=== PATIENT | female | born 1990 | race Caucasian/White ===

== ENCOUNTER 2019-12-30 20:50 | Observation (INO) | payer BC ==
[~2019-12-30] VITALS: Ht 154.9 cm; Wt 83.5 kg
== END 2019-12-30 23:05 | disposition home or self-care (01) ==
LOC: SPU 20:50
PROVIDERS: ADMIT Obstetrics & Gynecology; ATTEND Obstetrics & Gynecology
DX: O36.8130 Decreased fetal movements, third trimester, not applicable or unspecified (principal); Z3A.29 29 weeks gestation of pregnancy
CPT/HCPCS: 76819; 81002; G0378

== ENCOUNTER 2020-01-01 15:25 | Emergency (ER) | payer BC ==
[~2020-01-01] VITALS: Ht 154.9 cm; Wt 83.5 kg
[2020-01-01 15:26] LABS: BILIRUBIN,URINE NEGATIVE (NEGATIVE); CLARITY/URINE CLEAR (CLEAR); COLOR,URINE YELLOW (YELLOW); GLUCOSE,URINE 3+ (NEGATIVE); KETONES,URINE 1+ (NEGATIVE); LEUKOCYTE ESTERASE ,URINE 2+ (NEGATIVE); NITRITE, URINE NEGATIVE (NEGATIVE); PROTEIN URINE NEGATIVE (NEGATIVE); UROBILINOGEN,URINE 0.2 (0.2-1.0)
[2020-01-01 15:39] LABS: BLOOD, URINE TRACE (NEGATIVE)
[2020-01-01 15:41] VITALS: BP_SYST 133
[2020-01-01 15:43] LABS: BACTERIA,URINE MODERATE /HPF (None Seen); MUCUS,URINE None Seen /LPF (None Seen); RBC,URINE 0-3 /HPF (0-3)
--- NOTE | 2020-01-01 15:44 | NUR ---
Patient to ER bed 02 to gown for evaluation. Side rails up.
--- NOTE | 2020-01-01 15:45 | NUR ---
Pt brought by self, A&Ox4, pt presents to ER with weakness and dizziness, pt states she is 29 weeks and she is taking Macrobid x 1 week for recent UTI, pt afebrile, skin pink and warm,cap refill <3.
--- NOTE | 2020-01-01 15:50 | NUR ---
Dr Parker evaluating patient at bedside
[2020-01-01 16:25] VITALS: BP_SYST 133
--- NOTE | 2020-01-01 16:27 | NUR ---
Patient given written and verbal discharge instructions and verbalizes understanding. ER MD discussed with patient the results and treatment provided. Patient in stable condition. ID arm band removed. . Rx of keflex and meclizine given. Patient educated on pain management and to follow up with PMD. Pain Scale 0/10 . Opportunity for questions provided and answered. Medication side effect fact sheet provided.
== END 2020-01-01 16:27 | disposition home or self-care (01) ==
LOC: EDSTATUS 15:25 → SED 15:25
DX: O23.43 Unspecified infection of urinary tract in pregnancy, third trimester (principal); O26.893 Other specified pregnancy related conditions, third trimester; H81.10 Benign paroxysmal vertigo, unspecified ear; Z88.8 Allergy status to other drugs, medicaments and biological substances; Z3A.29 29 weeks gestation of pregnancy
CPT/HCPCS: 59025; 81000-TC; 87086; 99283

== ENCOUNTER 2020-02-29 12:55 | Inpatient (IN) | payer BC ==
[~2020-02-29] VITALS: Ht 154.9 cm; Wt 91.6 kg
[2020-02-29 13:58] LABS: BILIRUBIN,URINE NEGATIVE (NEGATIVE); CLARITY/URINE CLEAR (CLEAR); COLOR,URINE YELLOW (YELLOW); GLUCOSE,URINE NEGATIVE (NEGATIVE); KETONES,URINE 1+ (NEGATIVE); LEUKOCYTE ESTERASE ,URINE NEGATIVE (NEGATIVE); NITRITE, URINE NEGATIVE (NEGATIVE); PROTEIN URINE 2+ (NEGATIVE); UROBILINOGEN,URINE 0.2 (0.2-1.0)
[2020-02-29 14:01] LABS: BLOOD, URINE TRACE (NEGATIVE)
[2020-02-29 14:05] LABS: BASOPHILS % (AUTO) 0.4 % (0.0-2.0); EOSINOPHILS % (AUTO) 0.4 % (0.0-4.0); HEMATOCRIT 38.2 % (36-48); HEMOGLOBIN 12.4 g/dL (12.0-16.0); LYMPHOCYTES # (AUTO) 1.4 K/uL (1.0-5.5); LYMPHOCYTES % (AUTO) 16.6 % (20.5-51.5); MEAN CORPUSCULAR HEMOGLOBIN 28 pg (27-31); MEAN CORPUSCULAR HGB CONC 32 % (32-36); MEAN CORPUSCULAR VOLUME 85 fL (79.0-98.0); MONOCYTES # (AUTO) 0.5 K/uL (0.0-1.0); MONOCYTES % (AUTO) 6.2 % (1.7-9.3); NEUTROPHILS # (AUTO) 6.3 K/uL (1.8-7.7); NEUTROPHILS % (AUTO) 76.4 % (40.0-70.0); PLATELET COUNT (AUTO) 204 K/uL (130-430); RED BLOOD CELL COUNT(AUTO) 4.47 MIL/uL (4.2-6.2); RED CELL DISTRIBUTION WIDTH 16.5 % (9.0-15.0); WHITE BLOOD COUNT (AUTO) 8.2 K/uL (4.8-10.8)
[2020-02-29 14:09] LABS: BACTERIA,URINE MODERATE /HPF (None Seen); MUCUS,URINE 1+ /LPF (None Seen)
[2020-02-29 14:19] LABS: CALCIUM 8.4 mg/dL (8.4-11.0); CREATININE 0.67 mg/dL (0.55-1.30); POTASSIUM 3.6 mmol/L (3.5-5.1); TOTAL BILIRUBIN 0.2 mg/dL (0.0-1.0)
[2020-02-29 14:20] LABS: ALBUMIN 2.2 g/dL (3.4-4.8)
[2020-02-29] MEDS ORDERED: LR 1,000 ML IV SCH (18:30)
[2020-02-29] MEDS ORDERED: DINOPROSTONE 10 MG SUPP VG ONE (18:30)
[2020-02-29] MEDS ORDERED: TERBUTALINE SULFATE 1 MG/ML VIAL SUBCUT ONE (18:30)
[2020-02-29] MEDS ORDERED: OXYTOCIN/0.9 % SODIUM CHLORIDE 1,000 ML IV SCH (18:30)
[2020-02-29] MEDS ORDERED: hydrALAZINE HCL 20 MG/ML VIAL IVP PRN (19:36)
[2020-02-29] MEDS ORDERED: MAGNESIUM SULFATE IN WATER 100 ML IV ONE (19:45)
[2020-02-29] MEDS: LR 1,000 ML IV SCH (19:55)
[2020-02-29 20:07] VITALS: BP_SYST 139
[2020-02-29] MEDS ORDERED: FLU VACC QS2020-21 (6 mos & up) 0.5 ML/SYRINGE I.M. PRN (20:15)
[2020-02-29] MEDS: MAGNESIUM SULFATE IN WATER 500 ML IV PRN (20:28)
[2020-03-01] MEDS: CALCIUM CARBONATE 500 MG/ TAB.CHEW PO PRN ×2 (02:16→02:39)
[2020-03-01] MEDS ORDERED: MORPHINE SULFATE 10 MG/ML VIAL IVP PRN (05:00)
[2020-03-01] MEDS ORDERED: hydrALAZINE HCL 20 MG/ML VIAL IVP PRN (06:15)
[2020-03-01] MEDS ORDERED: AMPICILLIN SODIUM 2 GM VIAL ONE (06:23)
[2020-03-01] MEDS ORDERED: AMPICILLIN SODIUM 2 GM in NS 100 ML IV ONE (06:30)
[2020-03-01] MEDS: LR 1,000 ML IV SCH (06:35)
[2020-03-01] MEDS ORDERED: LR 1,000 ML IV SCH ×2 (08:00→12:30)
[2020-03-01] MEDS ORDERED: CEFAZOLIN 2 GM IVPB PREMIX 50 ML IV ONE (08:00)
[2020-03-01] MEDS ORDERED: ONDANSETRON HCL 4 MG/2 ML VIAL IVP PRN (08:15)
[2020-03-01] MEDS ORDERED: NALBUPHINE HCL 10 MG/ML AMP IVP PRN (08:15)
[2020-03-01] MEDS ORDERED: NALOXONE HCL 0.4 MG/ML AMP (NARCAN) IVP PRN ×2 (08:15)
[2020-03-01] MEDS ORDERED: fentaNYL CITRATE/PF 100 MCG/2 ML AMP IVP PRN ×2 (08:15)
[2020-03-01] MEDS ORDERED: MORPHINE SULFATE 10MG/10ML PF AMP SP SCH (08:15)
[2020-03-01] MEDS ORDERED: KETOROLAC TROMETHAMINE 60 MG/2 ML VIAL IM PRN (08:15)
[2020-03-01] MEDS ORDERED: DINOPROSTONE 10 MG SUPP VG ONE (08:33)
[2020-03-01 09:44] VITALS: BP_SYST 134
[2020-03-01] MEDS ORDERED: OXYTOCIN/0.9 % SODIUM CHLORIDE 1,000 ML IV ONE ×2 (09:54→12:30)
[2020-03-01] MEDS ORDERED: ONDANSETRON HCL 4 MG/2 ML VIAL ONE (09:55)
[2020-03-01] MEDS ORDERED: BUPIVACAINE /PF 0.75% 10 ML VIAL INJ ONE (09:55)
[2020-03-01] MEDS ORDERED: NS IRRIG SOLN 1000 ML IR ONE (09:55)
[2020-03-01] MEDS ORDERED: MORPHINE SULFATE 10MG/10ML PF AMP ONE (09:55)
[2020-03-01] MEDS ORDERED: ePHEDrine sulfate 50 MG/ML VIAL ONE (09:55)
[2020-03-01] MEDS ORDERED: LR 1,000 ML IV.SOLN IV ONE (09:55)
[2020-03-01] MEDS: MAGNESIUM SULFATE IN WATER 500 ML IV PRN (10:08)
[2020-03-01] MEDS ORDERED: DIPHENHYDRAMINE INJ 50 MG/ML VIAL ONE (10:20)
[2020-03-01] MEDS: DIPHENHYDRAMINE INJ 50 MG/ML VIAL IVP PRN ×2 (10:25→18:42)
[2020-03-01] MEDS ORDERED: AMPICILLIN SODIUM 1 GM in NS 50 ML IV SCH (10:30)
[2020-03-01] MEDS ORDERED: BISACODYL 10 MG/SUPPOSITORY RC PRN (12:30)
[2020-03-01] MEDS ORDERED: SENNOSIDES/DOCUSATE SODIUM 1 TAB TABLET(SENOKOT-S) PO PRN (12:30)
[2020-03-01] MEDS ORDERED: LANOLIN 7 GM OINT. TP PRN (12:30)
[2020-03-01] MEDS ORDERED: RHO(D) IMMUNE GLOBULIN/MALTOSE 1500 UNITS/1.3 ML (WINHRO) IM PRN (12:30)
[2020-03-01] MEDS ORDERED: DIPH-TET-PERTUS Vaccine 0.5 ML VIAL (ADACEL) I.M. PRN (12:30)
[2020-03-01] MEDS ORDERED: ANUSOL 1 EA SUPP.RECT (PREPARATION H) RC PRN (12:30)
[2020-03-01] MEDS ORDERED: MEASLES,MUMPS&RUBELLA VACC/PF 12500 UNIT/0.5 ML VIAL SUBQ PRN (12:30)
[2020-03-01] MEDS: KETOROLAC TROMETHAMINE 30 MG VIAL IM SCH ×2 (14:13→20:16)
[2020-03-01] MEDS: CEFAZOLIN 1 GM IVPB PREMIX 50 ML IV SCH ×2 (14:13→22:03)
[2020-03-01] MEDS ORDERED: MAGNESIUM SULFATE/D5W 100 ML IV ONE (19:30)
[2020-03-01] MEDS: SIMETHICONE 80 MG TAB.CHEW PO PRN (20:15)
[2020-03-01] MEDS ORDERED: TEMAZEPAM 15 MG CAPSULE PO PRN (21:00)
[2020-03-01] MEDS: LABETALOL HCL 100 MG TABLET PO SCH (21:07)
[2020-03-02] MEDS: KETOROLAC TROMETHAMINE 30 MG VIAL IM SCH (02:14)
[2020-03-02] MEDS: SIMETHICONE 80 MG TAB.CHEW PO PRN ×4 (02:14→20:26)
[2020-03-02] MEDS: DOCUSATE SODIUM 100 MG CAPSULE PO PRN ×3 (02:14→20:25)
[2020-03-02] MEDS ORDERED: IBUPROFEN 600 MG TABLET PO SCH ×2 (06:00)
[2020-03-02] MEDS: IBUPROFEN 600 MG TABLET PO SCH ×4 (06:00→23:31)
[2020-03-02] MEDS: CEFAZOLIN 1 GM IVPB PREMIX 50 ML IV SCH (06:02)
[2020-03-02] MEDS: MAGNESIUM SULFATE IN WATER 500 ML IV PRN (06:10)
[2020-03-02] MEDS ORDERED: MAGNESIUM SULFATE IN WATER 500 ML IV PRN (06:45)
[2020-03-02 06:51] LABS: BASOPHILS % (AUTO) 0.4 % (0.0-2.0); EOSINOPHILS # (AUTO) 0.1 K/uL (0.0-0.4); EOSINOPHILS % (AUTO) 0.9 % (0.0-4.0); HEMATOCRIT 31.2 % (36-48); HEMOGLOBIN 10.4 g/dL (12.0-16.0); LYMPHOCYTES # (AUTO) 1.8 K/uL (1.0-5.5); LYMPHOCYTES % (AUTO) 20.8 % (20.5-51.5); MEAN CORPUSCULAR HEMOGLOBIN 28 pg (27-31); MEAN CORPUSCULAR HGB CONC 33 % (32-36); MEAN CORPUSCULAR VOLUME 85 fL (79.0-98.0); MONOCYTES # (AUTO) 0.8 K/uL (0.0-1.0); MONOCYTES % (AUTO) 9.3 % (1.7-9.3); NEUTROPHILS # (AUTO) 6.1 K/uL (1.8-7.7); NEUTROPHILS % (AUTO) 68.6 % (40.0-70.0); PLATELET COUNT (AUTO) 174 K/uL (130-430); RED BLOOD CELL COUNT(AUTO) 3.67 MIL/uL (4.2-6.2); RED CELL DISTRIBUTION WIDTH 17.3 % (9.0-15.0); WHITE BLOOD COUNT (AUTO) 8.8 K/uL (4.8-10.8)
[2020-03-02] MEDS: LABETALOL HCL 100 MG TABLET PO SCH ×2 (09:08→20:31)
[2020-03-02] MEDS ORDERED: OXYCODONE/ACETAMINOPHEN 5-325 TABLET PO PRN (20:15)
[2020-03-02] MEDS: OXYCODONE/ACETAMINOPHEN 5-325 TABLET PO PRN (20:24)
[2020-03-03] MEDS: IBUPROFEN 600 MG TABLET PO SCH ×3 (05:28→17:20)
[2020-03-03] MEDS: DOCUSATE SODIUM 100 MG CAPSULE PO PRN (09:03)
[2020-03-03] MEDS: LABETALOL HCL 100 MG TABLET PO SCH (09:05)
[2020-03-03] MEDS: OXYCODONE/ACETAMINOPHEN 5-325 TABLET PO PRN (11:06)
== END 2020-03-03 18:59 | disposition home or self-care (01) | DRG 788 ==
LOC: SPU 12:55 → OBSVTOIN 18:00
PROVIDERS: ADMIT Obstetrics & Gynecology; ATTEND Obstetrics & Gynecology
PROC: 10D00Z1 Extraction of Products of Conception, Low, Open Approach (ICD-10-PCS; principal; 2020-03-01 08:30)
DX: O13.4 Gestational [pregnancy-induced] hypertension without significant proteinuria, complicating childbirth (principal); O14.94 Unspecified pre-eclampsia, complicating childbirth; O99.344 Other mental disorders complicating childbirth; Z20.828 Contact with and (suspected) exposure to other viral communicable diseases; F41.9 Anxiety disorder, unspecified; O12.14 Gestational proteinuria, complicating childbirth; Z3A.37 37 weeks gestation of pregnancy; Z37.0 Single live birth
CPT/HCPCS: 36415; 59025; 80053; 81000-TC; 85025; 86592; 86886; 86900; 86901; 90715; 94760; G0378; J0290; J0360; J0690; J1200; J1885; J2274; J2405; J2590; J3475; J3490; J7120

== ENCOUNTER 2020-04-06 14:25 | Emergency (ER) | payer BC, SELFPAY ==
[~2020-04-06] VITALS: Ht 154.9 cm; Wt 81.6 kg
[2020-04-06 14:32] VITALS: BP_SYST 141
--- NOTE | 2020-04-06 14:32 | NUR ---
Patient triaged and placed in Tent 1. VSS and patient appears in no acute distress at this time. MD notified of need for MSE.
--- NOTE | 2020-04-06 14:35 | NUR ---
PT presented to ER C/O High BP. Patient ambulatory to ER. afebrile, skin pink & warm, BP 141/75, pain 6/10, denies N/V/D. Patient states she was referred to ER by OBGYN Dr. Ephraim Carrillo for high BP. PT report having 3 days of "high blood pressure" taken at home with home BP monitor.
--- NOTE | 2020-04-06 14:35 | NUR ---
PT reports 03/01/2020 and high BP during , COVID positive 03/25/2020. PT on PO labatolol daily.
--- NOTE | 2020-04-06 14:45 | NUR ---
ER Dr. Parker at bedside examining patient.
--- NOTE | 2020-04-06 14:46 | NUR ---
EKG performed at by Kristy PILLAI. Physician given copy of EKG for review.
[2020-04-06 15:05] VITALS: BP_SYST 142
--- NOTE | 2020-04-06 15:05 | NUR ---
Patient given written and verbal discharge instructions and verbalizes understanding. ER MD discussed with patient the results and treatment provided. Patient in stable condition. ID arm band removed. Rx of [place] given. Patient educated on pain management and to follow up with PMD. Pain Scale 3/10. Opportunity for questions provided and answered. Medication side effect fact sheet provided.
--- NOTE | 2020-04-06 15:05 | NUR ---
Wanda hall in ED - 04/06/20 at 1519 by SDEDTD CONCHITA Parker at bedside examining patient.
== END 2020-04-06 15:05 | disposition home or self-care (01) ==
LOC: SED 14:25
DX: R07.89 Other chest pain (principal); I10 Essential (primary) hypertension; Z88.8 Allergy status to other drugs, medicaments and biological substances
CPT/HCPCS: 93005; 99283

== ENCOUNTER 2020-04-10 10:11 | Emergency (ER) | payer BC, MEDICAID, SELFPAY ==
[~2020-04-10] VITALS: Ht 154.9 cm; Wt 77.1 kg
[2020-04-10 10:19] VITALS: BP_SYST 134
[2020-04-10 11:05] VITALS: BP_SYST 134
== END 2020-04-10 11:06 | disposition home or self-care (01) ==
LOC: SED 10:11
DX: R00.0 Tachycardia, unspecified (principal); I10 Essential (primary) hypertension
CPT/HCPCS: 93005; 99283

== ENCOUNTER 2020-09-01 18:46 | Emergency (ER) | payer BC, MEDICAID, SELFPAY ==
[~2020-09-01] VITALS: Ht 154.9 cm; Wt 77.1 kg
[2020-09-01 19:10] VITALS: BP_SYST 137
[2020-09-01] MEDS ORDERED: METOCLOPRAMIDE HCL 10 MG/2 ML VIAL IVP ONE (19:45)
[2020-09-01] MEDS ORDERED: MECLIZINE HCL 25 MG TABLET (ANITVERT) PO ONE (19:45)
[2020-09-01 19:48] LABS: BASOPHILS # (AUTO) 0.1 K/uL (0.0-0.2); EOSINOPHILS # (AUTO) 0.1 K/uL (0.0-0.4); EOSINOPHILS % (AUTO) 1.8 % (0.0-4.0); HEMATOCRIT 39.9 % (36-48); HEMOGLOBIN 13.1 g/dL (12.0-16.0); LYMPHOCYTES % (AUTO) 36.4 % (20.5-51.5); MEAN CORPUSCULAR HEMOGLOBIN 28 pg (27-31); MEAN CORPUSCULAR HGB CONC 33 % (32-36); MEAN CORPUSCULAR VOLUME 85 fL (79.0-98.0); MONOCYTES # (AUTO) 0.6 K/uL (0.0-1.0); MONOCYTES % (AUTO) 7.3 % (1.7-9.3); NEUTROPHILS # (AUTO) 4.4 K/uL (1.8-7.7); NEUTROPHILS % (AUTO) 53.5 % (40.0-70.0); PLATELET COUNT (AUTO) 305 K/uL (130-430); RED BLOOD CELL COUNT(AUTO) 4.68 MIL/uL (4.2-6.2); WHITE BLOOD COUNT (AUTO) 8.2 K/uL (4.8-10.8)
[2020-09-01 20:05] LABS: CALCIUM 8.8 mg/dL (8.4-11.0); CREATININE 0.84 mg/dL (0.55-1.30); POTASSIUM 4.3 mmol/L (3.5-5.1)
[2020-09-01 20:09] LABS: INR 1.5 (0.8-1.2); PROTHROMBIN TIME 15.7 SECS (9.5-12.5)
[2020-09-01 20:10] LABS: ALBUMIN 3.4 g/dL (3.4-4.8)
[2020-09-01 20:42] LABS: TOTAL BILIRUBIN 0.3 mg/dL (0.0-1.0)
[2020-09-01] MEDS ORDERED: MECL-160 PO (21:26)
[2020-09-02 01:55] VITALS: BP_SYST 125
== END 2020-09-02 01:55 | disposition home or self-care (01) ==
LOC: SED 18:46
DX: R42 Dizziness and giddiness (principal); I10 Essential (primary) hypertension; Z88.8 Allergy status to other drugs, medicaments and biological substances
CPT/HCPCS: 36415; 70450; 71045; 76376; 76801; 76817; 80053; 81025; 84484; 84702; 84703; 85025; 85610; 85730; 93005; 96374; 99285; J2765; J8597

== ENCOUNTER 2020-09-04 08:12 | Emergency (ER) | payer BC ==
[~2020-09-04] VITALS: Ht 154.9 cm; Wt 77.1 kg
[~2020-09-04 08:12] MED LIST: MECL-160 PO
[2020-09-04 08:17] VITALS: BP_SYST 127
[2020-09-04 09:04] LABS: BASOPHILS % (AUTO) 0.5 % (0.0-2.0); EOSINOPHILS # (AUTO) 0.1 K/uL (0.0-0.4); EOSINOPHILS % (AUTO) 1.8 % (0.0-4.0); HEMATOCRIT 40.9 % (36-48); HEMOGLOBIN 13.4 g/dL (12.0-16.0); LYMPHOCYTES # (AUTO) 2.5 K/uL (1.0-5.5); LYMPHOCYTES % (AUTO) 36.9 % (20.5-51.5); MEAN CORPUSCULAR HEMOGLOBIN 28 pg (27-31); MEAN CORPUSCULAR HGB CONC 33 % (32-36); MEAN CORPUSCULAR VOLUME 85 fL (79.0-98.0); MONOCYTES # (AUTO) 0.5 K/uL (0.0-1.0); MONOCYTES % (AUTO) 7.4 % (1.7-9.3); NEUTROPHILS # (AUTO) 3.6 K/uL (1.8-7.7); NEUTROPHILS % (AUTO) 53.4 % (40.0-70.0); PLATELET COUNT (AUTO) 304 K/uL (130-430); RED BLOOD CELL COUNT(AUTO) 4.82 MIL/uL (4.2-6.2); RED CELL DISTRIBUTION WIDTH 13.9 % (9.0-15.0); WHITE BLOOD COUNT (AUTO) 6.8 K/uL (4.8-10.8)
[2020-09-04 09:36] VITALS: BP_SYST 127
[2020-09-04] MEDS ORDERED: MORPHINE 4 MG INJ. 4 MG/ML VIAL ONE (17:31)
== END 2020-09-04 09:36 | disposition home or self-care (01) ==
LOC: SED 08:12
DX: O03.9 Complete or unspecified spontaneous abortion without complication (principal); I10 Essential (primary) hypertension; Z88.8 Allergy status to other drugs, medicaments and biological substances; Z79.899 Other long term (current) drug therapy
CPT/HCPCS: 36415; 81025; 84702; 85025; 99283; J2270

== ENCOUNTER 2020-10-21 11:06 | Emergency (ER) | payer BC ==
[~2020-10-21] VITALS: Ht 154.9 cm; Wt 82.6 kg
[2020-10-21 11:10] VITALS: BP_SYST 159
[2020-10-21 12:03] LABS: BASOPHILS % (AUTO) 0.5 % (0.0-2.0); EOSINOPHILS # (AUTO) 0.1 K/uL (0.0-0.4); EOSINOPHILS % (AUTO) 0.6 % (0.0-4.0); HEMOGLOBIN 12.7 g/dL (12.0-16.0); LYMPHOCYTES # (AUTO) 2.6 K/uL (1.0-5.5); LYMPHOCYTES % (AUTO) 28.6 % (20.5-51.5); MEAN CORPUSCULAR HEMOGLOBIN 29 pg (27-31); MEAN CORPUSCULAR HGB CONC 33 % (32-36); MEAN CORPUSCULAR VOLUME 87 fL (79.0-98.0); MONOCYTES # (AUTO) 0.9 K/uL (0.0-1.0); MONOCYTES % (AUTO) 9.6 % (1.7-9.3); NEUTROPHILS # (AUTO) 5.6 K/uL (1.8-7.7); NEUTROPHILS % (AUTO) 60.7 % (40.0-70.0); PLATELET COUNT (AUTO) 289 K/uL (130-430); RED BLOOD CELL COUNT(AUTO) 4.46 MIL/uL (4.2-6.2); RED CELL DISTRIBUTION WIDTH 15.5 % (9.0-15.0); WHITE BLOOD COUNT (AUTO) 9.2 K/uL (4.8-10.8)
[2020-10-21 12:06] LABS: CALCIUM 8.9 mg/dL (8.4-11.0); CREATININE 0.67 mg/dL (0.55-1.30); POTASSIUM 3.9 mmol/L (3.5-5.1)
[2020-10-21 12:41] LABS: ALBUMIN 3.4 g/dL (3.4-4.8); TOTAL BILIRUBIN 0.1 mg/dL (0.0-1.0)
[2020-10-21 14:41] VITALS: BP_SYST 149
== END 2020-10-21 14:42 | disposition home or self-care (01) ==
LOC: SED 11:06
DX: O26.891 Other specified pregnancy related conditions, first trimester (principal); R42 Dizziness and giddiness; I10 Essential (primary) hypertension; Z79.899 Other long term (current) drug therapy; Z3A.01 Less than 8 weeks gestation of pregnancy
CPT/HCPCS: 36415; 76801; 76817; 80053; 84702; 85025; 99284